=== PATIENT | male | born 1960 | race American Indian/Alaskan Native ===

== ENCOUNTER 2018-11-20 19:08 | Emergency (ER) | payer MEDICAID, OTHER ==
[2018-11-20 19:15] VITALS: RESP 18
[2018-11-20] MEDS ORDERED: Sodium Chloride 0.9% 1,000 ML IV STA (19:41)
[2018-11-20] MEDS ORDERED: DiphenhydrAMINE 50 mg/ml Inj IVP STA (19:45)
[2018-11-20] MEDS ORDERED: DiphenhydrAMINE 50 mg/ml Inj ONE (20:01)
--- NOTE | 2018-11-20 20:26 | ED PDOC ---
HPI: Abdomen Time Seen by Provider: 11/20/18 19:18 Chief Complaint (Nursing): GI Problem Chief Complaint (Provider): GI Problem History Per: Patient History/Exam Limitations: no limitations Onset/Duration Of Symptoms: Hrs Current Symptoms Are (Timing): Still Present Location Of Pain/Discomfort: Epigastric Additional Complaint(s): 58 y/o male with a PMHx of Gastritis presents to the ED for evaluation of intractable, non-bloody vomiting, onset earlier today. Patient states his "gastritis is acting up". Patient reports of developing exacerbation whenever he drinks alcohol. Patient admits to drinking two beers today. Patient states he drinks alcohol daily. Patient additionally reports of regular marijuana use. Patient states vomiting is associated with epigastric pain and chills. Denies diarrhea, urinary symptoms and fever. PMD: none provided Past Medical History Reviewed: Historical Data, Nursing Documentation, Vital Signs Vital Signs: Last Vital Signs Temp 98.5 F 11/20/18 19:51 Pulse 85 11/20/18 19:12 Resp 18 11/20/18 19:12 BP 140/90 11/20/18 19:12 Pulse Ox 99 11/20/18 19:12 - Medical History PMH: Gastritis - Surgical History Surgical History: No Surg Hx - Family History Family History: States: Unknown Family Hx - Home Medications Home Medications: Ambulatory Orders Medication Instructions Recorded Omeprazole Magnesium [Prilosec Otc] 20 mg PO DAILY #30 tcp 04/07/15 Promethazine Hydrochloride 25 mg PO Q6H PRN #30 tab 04/07/15 [Phenergan] - Allergies Allergies/Adverse Reactions: Allergies Allergy/AdvReac Type Severity Reaction Status Date / Time No Known Allergies Allergy Verified 11/20/18 19:12 Review of Systems ROS Statement: Except As Marked, All Systems Reviewed And Found Negative (as per HPI) Constitutional: Positive for: Chills. Negative for: Fever Gastrointestinal: Positive for: Vomiting, Abdominal Pain (EPIGASTRIC PAIN). Negative for: Diarrhea Genitourinary Male: Negative for: Dysuria, Frequency, Hematuria Physical Exam - Reviewed Nursing Documentation Reviewed: Yes Vital Signs Reviewed: Yes - Physical Exam Appears: Positive for: In Acute Distress (in acute Gastrointestinal Distress, vomiting in room. Cachectic) Head Exam: Positive for: ATRAUMATIC, NORMOCEPHALIC Skin: Positive for: Diaphoresis Eye Exam: Positive for: EOMI, PERRL, Conjunctival injection ENT: Positive for: Other (Tachy mucous membranes) Neck: Positive for: Painless ROM, Supple Cardiovascular/Chest: Positive for: Regular Rate, Rhythm. Negative for: Murmur Respiratory: Positive for: Normal Breath Sounds. Negative for: Respiratory Distress Gastrointestinal/Abdominal: Positive for: Normal Exam, Soft. Negative for: Tenderness Back: Positive for: Normal Inspection Extremity: Positive for: Other (Very Poor Muscle Bulk) Lymphatic: Negative for: Adenopathy Neurologic/Psych: Positive for: Alert, Mood/Affect (anxious mood/affect). Negat ethan for: Motor/Sensory Deficits - Laboratory Results Result Diagrams: 11/20/18 20:45 11/20/18 20:45 - ECG O2 Sat by Pulse Oximetry: 99 (RA) Pulse Ox Interpretation: Normal Medical Decision Making Medical Decision Making: Time: 1941 Impression: Intractable Vomiting Differentials include but not limited to gastritis, gastroporesis, cannabinoid hyperemesis, pancreatitis, dehydration and electrolyte abnormality. Plan: -- Alcohol Serum -- CMP -- Urine Drug Screen -- Lact Acid, Plasma -- Lipase -- Magnesium -- Phosphorus -- ED Urine Dipstick -- CBC with differentials -- Benadryl 25 mg IVP -- Dextrose 5%-0.9% NS 1000 ml IV 100 mls/hr -- Sodium Chloride 0.9% IV 1000 mls/hr -- Protonix Inj 40 mg IVP -- Reglan 10 mg IV -- Zofran Inj 8 mg IV -- IV Insertion 2300 Initially pt stopped vomiting, then when asked of improvement, started vomiting again. promethazine ordered and IVF continued. 2353 Labs reviewed, patient with blood alcohol level of [address] Krishna pending reassessment, final disposition. Scribe Attestation: Documented by Zack Brannon, acting as a scribe for Anjelica York MD. Provider Scribe Attestation: All medical record entries made by the Scribe were at my direction and personally dictated by me. I have reviewed the chart and agree that the record accurately reflects my personal performance of the history, physical exam, medical decision making, and the department course for this patient. I have also personally directed, reviewed, and agree with the discharge instructions and disposition. Disposition - Clinical Impression Clinical Impression: Vomiting - Patient ED Disposition Is Patient to be Admitted: Transfer of Care - Disposition Disposition: Transfer of Care Disposition Time: 23:55 Condition: STABLE Print Language: PRYDEINIG
[2018-11-20 20:51] LABS: BASO % 0.9 % (0.0-2.0); EOS % 0.6 % (0.0-4.0); HEMOGLOBIN 11.8 g/dL (12.0-18.0); LYMPH # 1.7 K/uL (1.0-4.3); LYMPH % 31.2 % (20.0-40.0); MEAN CELL VOLUME 99.3 fl (80.0-94.0); MEAN CORPUSCULAR HEMOGLOBIN 33.5 pg (27.0-31.0); MEAN CORPUSCULAR HGB CONC 33.8 g/dL (33.0-37.0); MEAN PLATELET VOLUME 7.3 fl (7.2-11.7); MONO # 0.5 K/uL (0.0-0.8); MONO % 9.1 % (0.0-10.0); NEUT # 3.1 K/uL (1.8-7.0); NEUT % 58.2 % (50.0-75.0); RBC 3.53 Mil/uL (4.40-5.90); RED CELL DISTRIBUTION WIDTH 13.1 % (11.5-14.5); WHITE BLOOD COUNT 5.3 K/uL (4.8-10.8)
[2018-11-20 21:03] LABS: ALB/GLOB RATIO 0.9 (1.0-2.1); ALBUMIN 4.3 g/dL (3.5-5.0); ALT/SGPT 24 U/L (21-72); AST/SGOT 41 U/L (17-59); BLOOD UREA NITROGEN 10 mg/dl (9-20); CALCIUM 9.3 mg/dL (8.4-10.2); GFR NON-AFRICAN AMERICAN > 60; LIPASE 75 U/L (23-300)
[2018-11-20] MEDS ORDERED: Promethazine 25 MG in Sodium Chloride 0.9% 50 ML IVPB ONE (23:45)
--- NOTE | 2018-11-20 23:57 | ED PDOC ---
- Laboratory Results Result Diagrams: 11/20/18 20:45 11/20/18 20:45 - ECG O2 Sat by Pulse Oximetry: 99 (RA) Pulse Ox Interpretation: Normal Medical Decision Making Medical Decision Makin Patient signed out to me by Dr. York pending reassessment, final disposition. 0125 Patient positive for cannabinoids. 0435 On reeval, attempting to get patient to eat, he becomes diaphoretic, and had an episode of vomiting witnessed by myself and RN. Concerns for alcohol withdrawal; patient given IV Fluids, IV Zofran, Ativan 2mg IVP. CT Abdomen/Pelvis w/ IV Contrast ordered 616 CT Abdomen Findings: Moderate amount of fecal residue in the large bowels. Uncomplicated colonic diverticulosis. The liver is mildly enlarged with decreased attenuation without mass or defect. There is no intra or extrahepatic biliary ductal dilatation. The spleen is normal. The gallbladder is within normal limits. The pancreas is of normal contour and attenuation characteristics. There is no evidence of adrenal mass. Both kidneys demonstrate prompt and equal nephrograms. The kidneys are normal in size, shape and configuration. There is no evidence of renal or ureteral mass. No renal or ureteral calculi are identified. There is no hydroureter or h ydronephrosis. No evidence for appendicitis. There is no bowel wall thickening. No evidence for small or large bowel obstruction. There is no evidence of abdominal ascites or lymphadenopathy. There is no evidence of intrinsic or extrinsic bladder mass. There is no pelvic ascites or lymphadenopathy. Mild prostatomegaly. Fat containing left inguinal hernia without incarceration. Images of the lung bases show no evidence of pleural or parenchymal mass. There are no pleural effusions. The bony structures are free of lytic or blastic lesions. IMPRESSION: Constipation. No evidence of acute abdominal or pelvic pathology. Hepatomegaly with hepatic steatosis. On reassessment, patient reports improvement in symptom. Patient noted to tolerate PO intake, and with no additional episodes of vomiting. Patient is stable for discharge home. Scribe Attestation: Documented by Lynda Mccarthy, acting as a scribe for Shannan Krishna MD. Provider Scribe Attestation: All medical record entries made by the Scribe were at my direction and personally dictated by me. I have reviewed the chart and agree that the record accurately reflects my personal performance of the history, physical exam, medical decision making, and the department course for this patient. I have also personally directed, reviewed, and agree with the discharge instructions and disposition. Disposition - Clinical Impression Clinical Impression: Vomiting - POA Present On Arrival: None - Disposition Disposition: Routine/Home Disposition Time: 06:20 Condition: STABLE Print Language: MAURITANIAN
[2018-11-21 01:24] LABS: BARBITURATES, UR NEGATIVE (NEGATIVE); BENZODIAZEPINES, UR NEGATIVE (NEGATIVE); OPIATES, UR NEGATIVE (NEGATIVE); PHENCYCLIDINE, UR NEGATIVE (NEGATIVE)
[2018-11-21] MEDS ORDERED: Iohexol 300 100 ML IJ ONE (04:45)
[2018-11-21] MEDS ORDERED: Sodium Chloride 0.9% 50 ML IV ONE (04:45)
[2018-11-21] MEDS ORDERED: Sodium Chloride 0.9% 1,000 ML IV STA (05:10)
[2018-11-21 07:54] VITALS: BP 138/79; PULSE 76; TEMP 98.9
--- NOTE | 2018-11-21 10:42 | CT ---
Date of service: 11/21/2018 PROCEDURE: CT Abdomen and Pelvis with contrast HISTORY: Vomiting COMPARISON: Comparison made with prior CT scan abdomen pelvis 07/12/2013. TECHNIQUE: Contrast dose: Radiation dose: Total exam DLP = 196.57 mGy-cm. This CT exam was performed using one or more of the following dose reduction techniques: Automated exposure control, adjustment of the mA and/or kV according to patient size, and/or use of iterative reconstruction technique. FINDINGS: LOWER THORAX: Heart size is upper limits of normal. No significant pericardial effusion. Small hiatal hernia. Minor passive/dependent type atelectasis seen both posterior lower lung cabrera. No significant pericardial effusion. LIVER: Liver is enlarged measuring nearly 19 cm in CC dimension. Mild diffuse fatty hepatic infiltration. No obvious hepatic mass collection or calcification. GALLBLADDER AND BILE DUCTS: Gallbladder is poorly delineated due to adjacent air-filled bowel. No obvious intraluminal gallbladder calculi. PANCREAS: Unremarkable. No gross lesion or ductal dilatation. SPLEEN: Unremarkable. ADRENALS: No adrenal lesions. KIDNEYS AND URETERS: Kidneys demonstrate symmetric nephrograms. 3.4 mm nonobstructing calculus seen in the mid to lower pole right kidney. Two additional very tiny calcifications also seen lower pole collecting system right kidney as well. No evidence of hydronephrosis.. No solid mass. VASCULATURE: Unremarkable. No aortic aneurysm. Minor aortic atherosclerotic calcification or mural plaque present. BOWEL: Evaluation of the bowel is limited due to the lack of oral contrast material. Stomach is incompletely distended. Visualized loops of small bowel exhibit normal contour and caliber. No evidence of acute mechanical small bowel obstruction... Moderate amount stool seen within the cecum and proximal ascending colon suggesting mild constipation. APPENDIX: Appendix is not seen with complete certainty on this study however no radiographic evidence of acute appendicitis.. PERITONEUM: Unremarkable. No free fluid. No free air. There is a medium-sized fat containing left inguinal hernia. LYMPH NODES: Unremarkable. No enlarged lymph nodes. BLADDER: Unremarkable. REPRODUCTIVE: Prostate gland measures approximately 4.2 cm likely due to BPH. Correlation with PSA recommended. Few prostatic calcifications are present. BONES: No acute fracture. OTHER FINDINGS: None. IMPRESSION: Mild hepatomegaly with fatty hepatic infiltration.. Mild constipation. The appendix is not seen with any certainty on this study however no radiographic evidence of acute appendicitis. Nonobstructing small calcifications lower pole right kidney. Mild prostatic enlargement with scattered prostatic calcifications. Findings likely due to BPH however correlation with PSA recommended. Moderate size fat containing left inguinal hernia. See above discussion for additional details
[2018-11-21 15:41] VITALS: O2SAT 99
--- NOTE | 2018-11-21 20:48 | CARD ---
APPROVED REPORT Date of service: 11/21/2018 EKG Measurement Heart [id number] <Conclusion> Normal sinus rhythm Possible Left atrial enlargement Left ventricular hypertrophy Abnormal ECG
== END 2018-11-21 07:54 | disposition home or self-care (01) ==
LOC: H.ER 19:08
DX: N20.0 Calculus of kidney (principal); K76.0 Fatty (change of) liver, not elsewhere classified; K40.90 Unilateral inguinal hernia, without obstruction or gangrene, not specified as recurrent; R11.10 Vomiting, unspecified; F12.90 Cannabis use, unspecified, uncomplicated; Z79.899 Other long term (current) drug therapy
CPT/HCPCS: 74177; 80053; 80320; 80324; 80345; 80346; 80349; 80353; 80358; 80361; 83605; 83690; 83735; 83992; 84100; 85025; 93005; 96361; 96374; 96375; 99285; C9113; J1200; J2060; J2405; J2550; J2765; J7030; J7042; Q9967

== ENCOUNTER 2019-03-02 23:34 | Emergency (ER) | payer MEDICAID ==
[2019-03-02 23:45] VITALS: BMI 19.8
[2019-03-03] MEDS ORDERED: Sodium Chloride 0.9% 1,000 ML IV STA (01:26)
--- NOTE | 2019-03-03 01:38 | ED PDOC ---
HPI: Abdomen Time Seen by Provider: 03/03/19 01:10 Chief Complaint (Nursing): GI Problem Chief Complaint (Provider): abdominal pain History Per: Patient History/Exam Limitations: no limitations Onset/Duration Of Symptoms: Hrs (3) Current Symptoms Are (Timing): Still Present Location Of Pain/Discomfort: Epigastric Associated Symptoms: Nausea, Vomiting Additional Complaint(s): 58 y/o male presents for evaluation of epigastric abdominal pain. Associated nausea/vomiting. Patient states "my gastritis is acting up". Patient denies fever, cough, congestion, chest pain, shortness of breath, palpitations, urinary symptoms, changes in bowel movements, drug use. Patient admits to drinking alcohol tonight and states he drinks "quite often" Past Medical History Reviewed: Historical Data, Nursing Documentation, Vital Signs Vital Signs: Last Vital Signs Temp 99.1 F 03/02/19 23:44 Pulse 97 H 03/02/19 23:44 Resp 18 03/02/19 23:44 BP 152/92 H 03/02/19 23:44 Pulse Ox 97 03/02/19 23:44 - Medical History PMH: Gastritis - Surgical History Surgical History: No Surg Hx - Family History Family History: States: Unknown Family Hx - Home Medications Home Medications: Ambulatory Orders Medication Instructions Recorded Omeprazole Magnesium [Prilosec Otc] 20 mg PO DAILY #30 tcp 04/07/15 Promethazine Hydrochloride 25 mg PO Q6H PRN #30 tab 04/07/15 [Phenergan] Famotidine [Pepcid] 20 mg PO BID #20 tab 03/03/19 Ondansetron ODT [Zofran ODT] 4 mg PO Q8 PRN #10 odt 03/03/19 - Allergies Allergies/Adverse Reactions: Allergies Allergy/AdvReac Type Severity Reaction Status Date / Time No Known Allergies Allergy Verified 11/20/18 19:12 Review of Systems ROS Statement: Except As Marked, All Systems Reviewed And Found Negative Gastrointestinal: Positive for: Nausea, Vomiting, Abdominal Pain Physical Exam - Reviewed Nursing Documentation Reviewed: Yes Vital Signs Reviewed: Yes - Physical Exam Appears: Positive for: Well, Non-toxic, No Acute Distress (sleeping) Head Exam: Positive for: ATRAUMATIC, NORMAL INSPECTION, NORMOCEPHALIC Skin: Positive for: Normal Color Eye Exam: Positive for: Normal appearance ENT: Positive for: Normal ENT Inspection Cardiovascular/Chest: Positive for: Regular Rate, Rhythm Respiratory: Positive for: Normal Breath Sounds Gastrointestinal/Abdominal: Positive for: Bowel Sounds, Soft. Negative for: Tenderness Back: Positive for: Normal Inspection Extremity: Positive for: Normal ROM Neurological/Psych: Positive for: Awake, Alert, Oriented (x3) - Laboratory Results Result Diagrams: 03/03/19 01:43 03/03/19 01:43 - ECG O2 Sat by Pulse Oximetry: 97 - Progress ED Course And Treament: -cbc -cmp -lipase -RUQ u/s -IV NS bolus -IV pepcid -IV zofran -ekg Right upper quadrant ultrasound. Indication: Abdominal pain, vomiting and weakness. Technique: Real-time ultrasound images were obtained. Findings: The liver is normal in size measuring 16 cm. Diffuse hepatic steatosis is noted. Unremarkable gallbladder. Nondilated common bile duct measuring 3.2 mm. Unremarkable aorta and pancreas. Unremarkable right kidney. Impression: Hepatic steatosis. Otherwise, unremarkable exam. Patient sleeping throughout ED visit. Tolerated PO Patient educated on findings, discharged with rx Pepcid, Zofran Advised follow up PMD within 2-3 days. Stop drinking. Return precautions given Disposition - Clinical Impression Clinical Impression: Alcoholic gastritis - Patient ED Disposition Is Patient to be Admitted: No Counseled Patient/Family Regarding: Studies Performed, Diagnosis, Need For Followup, Rx Given - Disposition Referrals: [facility] [Outside] Disposition: Routine/Home Disposition Time: 04:22 Condition: IMPROVED Prescriptions: Famotidine [Pepcid] 20 mg PO BID #20 tab Ondansetron ODT [Zofran ODT] 4 mg PO Q8 PRN #10 odt PRN Reason: Nausea/Vomiting Instructions: Alcohol Use - When Is Drinking a Problem?, Gastritis, Effects of Alcohol on Your Health
[2019-03-03 01:47] LABS: BASO # 0.1 K/uL (0.0-0.2); BASO % 1.5 % (0.0-2.0); EOS # 0.1 K/uL (0.0-0.7); EOS % 1.7 % (0.0-4.0); HEMOGLOBIN 11.9 g/dL (12.0-18.0); LYMPH # 1.1 K/uL (1.0-4.3); LYMPH % 23.7 % (20.0-40.0); MEAN CELL VOLUME 96.7 fl (80.0-94.0); MEAN CORPUSCULAR HEMOGLOBIN 32.5 pg (27.0-31.0); MEAN CORPUSCULAR HGB CONC 33.6 g/dL (33.0-37.0); MEAN PLATELET VOLUME 7.2 fl (7.2-11.7); MONO # 0.5 K/uL (0.0-0.8); MONO % 10.6 % (0.0-10.0); NEUT # 2.8 K/uL (1.8-7.0); NEUT % 62.5 % (50.0-75.0); NRBC % 0.1 % (0.0-0.0); RBC 3.65 Mil/uL (4.40-5.90); RED CELL DISTRIBUTION WIDTH 14.5 % (11.5-14.5); WHITE BLOOD COUNT 4.5 K/uL (4.8-10.8)
[2019-03-03 01:57] LABS: ALBUMIN 4.5 g/dL (3.5-5.0); ALT/SGPT 184 U/L (21-72); AST/SGOT 158 U/L (17-59); BLOOD UREA NITROGEN 8 mg/dl (9-20); CALCIUM 9.2 mg/dL (8.4-10.2); GFR NON-AFRICAN AMERICAN > 60; LIPASE 59 U/L (23-300)
[2019-03-03 06:14] VITALS: BP 143/79; PULSE 81; RESP 17; TEMP 99; O2SAT 98
--- NOTE | 2019-03-03 12:18 | US ---
Date of service: 03/03/2019 HISTORY: vomiting COMPARISON: None. TECHNIQUE: Sonographic evaluation of the right upper quadrant of the abdomen. FINDINGS: LIVER: Measures 15.9 cm in length. Normal echogenicity of the liver parenchyma. No mass. No intrahepatic bile duct dilatation. GALLBLADDER: Unremarkable. No gallstones. COMMON BILE DUCT: Measures 3 mm. No stones. No dilatation. PANCREAS: Unremarkable as visualized. No mass. No ductal dilatation. RIGHT KIDNEY: Measures 10.5 cm in length. Normal echogenicity. No calculus, mass, or hydronephrosis. AORTA: No aneurysmal dilatation. IVC: Unremarkable. OTHER FINDINGS: None . IMPRESSION: Unremarkable examination. The preliminary findings for this examination were reported by [facility] at 4:04 a.m. on 03/03/2019. There is discordance of this report with the preliminary findings. Echogenic liver indicating hepatic steatosis was not described by the examining sonographic technologist.
--- NOTE | 2019-03-03 23:05 | CARD ---
APPROVED REPORT Date of service: 03/03/2019 EKG Measurement Heart [id number] <Conclusion> Normal sinus rhythm Left ventricular hypertrophy with QRS widening Abnormal ECG
== END 2019-03-03 06:11 | disposition home or self-care (01) ==
LOC: H.ER 23:34
DX: K29.20 Alcoholic gastritis without bleeding (principal); K76.0 Fatty (change of) liver, not elsewhere classified
CPT/HCPCS: 76705; 80053; 80320; 83690; 85025; 93005; 96361; 96374; 96375; 99284; J2405; J7030